=== PATIENT | male | born 1975 | race Asian ===

== ENCOUNTER 2019-11-27 21:31 | Emergency (ER) | payer BC ==
[~2019-11-27] VITALS: Ht 172.7 cm; Wt 89.8 kg
[2019-11-27 21:44] VITALS: Ht 172.7 cm; Wt 89.8 kg
[2019-11-27 22:04] VITALS: BP 136/85
== END 2019-11-27 22:04 | disposition home or self-care (01) ==
LOC: ED 21:31
DX: L23.9 Allergic contact dermatitis, unspecified cause (principal); I10 Essential (primary) hypertension
CPT/HCPCS: J1100; J1200